=== PATIENT | female | born 1995 | race Caucasian/White ===

== ENCOUNTER 2018-02-05 15:08 | Emergency (ER) | payer OTHER ==
[~2018-02-05] VITALS: Ht 162.6 cm; Wt 99.8 kg
[~2018-02-05 15:08] MED LIST: ACETAMINOPHEN-1 EAC1 PO; AMOXICILLIN 50500 M1 PO; CLEOCIN HCL300 MG PO; IBUPROFEN 600600 M1 PO; IBUPROFEN 800800 M1 PO; NOHOMEMEDICATIONS; SEPTRA DS TABL1 EACH PO; ZPAK PO
[2018-02-05] MEDS ORDERED: ZANAFLEX2 M1 PO (15:10)
[2018-02-05] MEDS ORDERED: TRAMADOL 50 MG50 MG PO (16:37)
[2018-02-05 16:38] VITALS: BP 121/79
== END 2018-02-05 16:44 | disposition home or self-care (01) ==
LOC: ER 15:08
DX: S92.902A Unspecified fracture of left foot, initial encounter for closed fracture (principal); Z91.048 Other nonmedicinal substance allergy status; W22.8XXA Striking against or struck by other objects, initial encounter; Y92.89 Other specified places as the place of occurrence of the external cause; Y93.89 Activity, other specified; Y99.8 Other external cause status

== ENCOUNTER 2018-06-20 14:51 | Emergency (ER) | payer OTHER ==
[~2018-06-20] VITALS: Ht 165.1 cm; Wt 104.3 kg
[~2018-06-20 14:51] MED LIST changes: +TRAMADOL 50 MG50 MG PO; +ZANAFLEX2 M1 PO
[2018-06-20 14:53] VITALS: BP 118/79
[2018-06-20] MEDS ORDERED: MUCINEX600 MG PO (14:56)
[2018-06-20] MEDS ORDERED: AMOXICILLIN 50500 MG PO (15:47)
[2018-06-20] MEDS ORDERED: TRAMADOL 50 MG50 MG PO (15:50)
== END 2018-06-20 16:02 | disposition home or self-care (01) ==
LOC: ER 14:51
DX: H66.92 Otitis media, unspecified, left ear (principal)